=== PATIENT | male | born 1975 | race Caucasian/White ===

== ENCOUNTER 2020-06-01 12:45 | Day surgery (SDC) | payer OTHER ==
[~2020-06-01] VITALS: Ht 172.7 cm; Wt 66.9 kg
[~2020-06-01 12:45] MED LIST: BUPIVACAINE/PF 0.5% ONE; EPINEPHRINE 1 MG/ML, 1ML ONE; NEOSPORIN OINT, 15GM ONE
[2020-06-01 13:14] VITALS: BP 150/93
[2020-06-01] MEDS ORDERED: LACTATED RINGERS 1,000 ML IV SCH (13:30)
[2020-06-01] MEDS ORDERED: CHLORHEXIDINE 15 ML UDC MM ONE (13:30)
[2020-06-01] MEDS ORDERED: CHLORHEXIDINE 15 ML UDC MM STA (13:31)
[2020-06-01] MEDS ORDERED: FENTANYL PF 250 MCG/5ML ONE ×2 (13:33→15:44)
[2020-06-01] MEDS ORDERED: MIDAZOLAM 1 MG/ML, 2ML ONE ×2 (13:33)
[2020-06-01] MEDS ORDERED: no meds (14:18)
[2020-06-01] MEDS ORDERED: LORazepam 2 MG/ML, 1ML ONE (15:10)
[2020-06-01] MEDS ORDERED: ACETAMINOPHEN 325 MG TABLET PO PRN (15:30)
[2020-06-01] MEDS ORDERED: OXYcodone 5 MG/5 ML ORAL.SOL UDC PO PRN (15:30)
[2020-06-01] MEDS ORDERED: METOPROLOL 1 MG/ML, 5ML IV PRN (15:30)
[2020-06-01] MEDS ORDERED: DIPHENHYDRAMINE 50 MG/ML, 1ML IVPush PRN (15:30)
[2020-06-01] MEDS ORDERED: LORazepam 2 MG/ML, 1ML IVPush PRN (15:30)
[2020-06-01] MEDS ORDERED: HYDROmorphone 1 MG/ML, 1ML INJ IVPush PRN (15:30)
[2020-06-01] MEDS ORDERED: FENTANYL PF 100 MCG/2ML IV PRN (15:30)
[2020-06-01] MEDS ORDERED: PROMETHAZINE 25 MG/ML, 1ML IVPush PRN (15:30)
[2020-06-01] MEDS ORDERED: EPHEDRINE 50 MG/ML, 1ML IVPush PRN (15:30)
[2020-06-01] MEDS ORDERED: KETOROLAC 30 MG/1 ML IV PRN (15:30)
[2020-06-01] MEDS ORDERED: HALOPERIDOL 5 MG/ML IV PRN (15:30)
[2020-06-01] MEDS ORDERED: ALBUTEROL SULFATE 2.5 MG/3 ML NPPB PRN (15:30)
[2020-06-01] MEDS ORDERED: hydrALAzine 20 MG/ML, 1ML IV PRN (15:30)
[2020-06-01] MEDS ORDERED: LABETALOL 5MG/ML, 20ML IV PRN (15:30)
[2020-06-01] MEDS ORDERED: ONDANSETRON 2MG/ML, 2ML IVPush PRN (15:30)
[2020-06-01] MEDS ORDERED: ROCURONIUM 10MG/ML,5ML ONE (16:03)
[2020-06-01] MEDS ORDERED: ONDANSETRON 2MG/ML, 2ML ONE (16:03)
[2020-06-01] MEDS ORDERED: DEXAMETHASONE 4 MG/ML, 1ML ONE (16:03)
[2020-06-01] MEDS ORDERED: PROPOFOL 10 MG/ML, 20ML ONE (16:03)
[2020-06-01] MEDS ORDERED: CEFAZOLIN 1,000 MG ONE (16:03)
[2020-06-01] MEDS ORDERED: SUGAMMADEX 200 MG/2 ML IVPush ONE (16:03)
[2020-06-01] MEDS ORDERED: SUCCINYLCHOLINE 20 MG/ML, 10ML ONE (16:03)
[2020-06-01] MEDS ORDERED: OXYC5TAB2 PO (16:39)
== END 2020-06-01 18:10 | disposition home or self-care (01) ==
LOC: OUT 12:45
PROVIDERS: ATTEND Orthopaedic Surgery
DX: S42.021A Displaced fracture of shaft of right clavicle, initial encounter for closed fracture (principal); J45.909 Unspecified asthma, uncomplicated; F10.10 Alcohol abuse, uncomplicated; F17.200 Nicotine dependence, unspecified, uncomplicated; Z20.822 Contact with and (suspected) exposure to COVID-19; W18.39XA Other fall on same level, initial encounter; Y93.01 Activity, walking, marching and hiking; Y92.89 Other specified places as the place of occurrence of the external cause; Y99.8 Other external cause status
CPT/HCPCS: 23515; 73000; 87635; C1713; J0171; J0330; J0690; J1100; J2250; J2405; J2704; J3010; 76000